=== PATIENT | male | born 1960 | race Caucasian/White ===

== ENCOUNTER → 2024-08-01 | Outpatient (CLI) | payer BC ==
--- NOTE | 2024-08-01 11:50 | HMCIMG ---
COLON-GASTROGRAFIN REASON: DIVERTICULITIS OF LARGE INTESTINE W/O PERFORATION OR ABSCESS W/O BLEEDING COMPARISON: None TECHNIQUE: Gastrografin enema was performed. The fluoroscopic observation was performed, fluoroscopy time 1.6 minutes. FINDINGS: There is filling to the level of the mid sigmoid colon. Persistent attempts did not yield filling beyond this point. This may represent a rectal pouch. If there is no rectal pouch then this could represent an obstructing lesion in the mid sigmoid colon. IMPRESSION: 1. Gastrografin does not extend beyond the mid sigmoid colon, either bland and rectal pouch or a focal sigmoid obstruction.
== END | disposition home or self-care (01) ==
LOC: RAH 08:32
PROVIDERS: ATTEND Surgery
DX: K57.32 Diverticulitis of large intestine without perforation or abscess without bleeding (principal)
CPT/HCPCS: 74270; Q9958

== ENCOUNTER → 2024-08-28 | Outpatient (CLI) | payer BC ==
[~2024-08-28] MED LIST: IOHEXOL-350 75 ML VIAL IV ONE
--- NOTE | 2024-08-28 11:35 | HMCIMG ---
CT ABDOMEN WITHOUT AND WITH CONTRAST INDICATION: Cutaneous abscess of abdominal wall TECHNIQUE: Routine transaxial images at 5 mm slice thickness were obtained prior to the administration of contrast material through the abdomen only, and after the intravenous infusion of 100 mL of Omnipaque 350 through the abdomen only without adverse effects. Delayed images of the abdomen were also obtained. Coronal and sagittal reformatted imaging acquired for interpretation. Oral contrast was administered. CT was performed with one or more of the following dose reduction techniques: Automated exposure control, adjustment of the mA and/or kV according to patient size, or use of iterative reconstruction technique. COMPARISON: None FINDINGS: Heart size is normal. 1.2 cm nodule at the posterior right lung base. The liver is normal in size and smooth in contour without biliary duct dilation. A few tiny simple hepatic cysts. The spleen is normal in size without lesions. The gallbladder appears normal. The pancreas appears normal without pancreatic duct dilation. The adrenal glands appear normal. 2.8 cm proteinaceous or hemorrhagic cyst along the lateral cortex of the left kidney at its midportion. Smaller 1.9 cm simple cyst along the anterior cortex of the right kidney at its upper portion. Cortical nephrograms are symmetric and normal in appearance bilaterally. No significant abdominal, retrocrural or retroperitoneal adenopathy noted.No evidence for intra-abdominal free air or organized fluid collection. No aortic aneurysmal dilation or dissection identified. Visible osseous structures are intact. IMPRESSION: 1. 1.2 cm posterior right lung base nodule. Please see below for recommendations. 2. Left abdominal colostomy appears normal, without any evidence for abdominal wall abscess. 3. Additional minor findings and pertinent negatives as reported. 2017 Guidelines for Management of Incidental Pulmonary Nodules Detected on CT images: Fleischner Society (Radiology 2017). Single Nodule: LOW RISK PATIENT: <6 mm: No follow-up required. 6-8 mm: Follow-up CT at 6-12 months, then CT at 18-24 months. >8 mm: Consider follow-up CT at 3 months, PET/CT , or tissue sampling. HIGH RISK PATIENT: <6 mm: Optional CT at 12 months. (Certain patients at high risk with suspicious nodule morphology, upper lobe location, or both may warrant 12 month follow-up). 6-8 mm: Follow-up CT at 6-12 months, then CT at 18-24 months. >8 mm: Consider follow-up CT at 3 months, PET/CT , or tissue sampling.
== END | disposition home or self-care (01) ==
LOC: RAH 08:14
PROVIDERS: ATTEND Internal Medicine Nephrology
DX: N28.1 Cyst of kidney, acquired (principal); L02.211 Cutaneous abscess of abdominal wall; K76.89 Other specified diseases of liver; Z93.3 Colostomy status
CPT/HCPCS: 74170; Q9967

== ENCOUNTER → 2024-10-11 | Outpatient (CLI) | payer BC ==
--- NOTE | 2024-10-11 18:30 | HMCIMG ---
ABDOMEN SINGLE VIEW INDICATION: Pain COMPARISON: None FINDINGS: Supine view only No abnormal bowel dilation noted. Moderate proximal and distal colonic stool burden. No abnormal calcifications identified. No gross free air detected. IMPRESSION: Moderate proximal and distal colonic stool burden without evidence for bowel obstruction.
== END | disposition home or self-care (01) ==
LOC: RAH 16:49
PROVIDERS: ATTEND Internal Medicine Gastroenterology
DX: K59.00 Constipation, unspecified (principal); R10.9 Unspecified abdominal pain
CPT/HCPCS: 74018

== ENCOUNTER → 2025-03-13 | Outpatient (CLI) | payer BC ==
--- NOTE | 2025-03-13 15:44 | HMCIMG ---
INDICATION: Cutaneous abscess of abdominal wall. COMPARISON: None. TECHNIQUE: After obtaining the patient's consent, CT images of the abdomen were obtained without intravenous contrast material. Multiplanar image reconstruction was performed. In addition, Multiplanar MIP reconstructions were created and interpreted to optimize visualization of vascular anatomy. Numerous low-radiation dose strategies were employed including AEC (Automatic Exposure Control) and individualized BMI-based low dose scan protocols. The exam was performed on a CT scanner that is compliant with the NEMA XR-29 Smart Dose Standard. DICOM Radiation Dose Structured Reporting capability and Dose Check Standard are also features of this scanner. RADIATION DOSE ESTIMATE: CTDIvol (mGy): 42.40 \ DLP (mGy-cm): 186.70 FINDINGS: The visualized portions of the lung bases are clear. LIVER: Normal. No enlargement or significant focal lesion. Portal vein is patent. There is a cyst seen in the right lobe of the liver in the periphery measuring 2 cm. BILIARY: Normal. No visible dilatation or calcification. PANCREAS: Normal. No lesion, fluid collection, ductal dilatation, or acute inflammation. SPLEEN: Normal. No enlargement or focal lesion. KIDNEYS: The left kidney in the upper to midpole there is a hyperdense lesion measuring 4.1 x 3.2 cm.. The right kidney and upper pole there is an exophytic cortical cyst measuring approximately 2.8 cm. ADRENALS: Normal. No mass or enlargement. RETROPERITONEUM: Normal. No mass or adenopathy. BOWEL/MESENTERY: Normal. No visible mass, obstruction, or bowel wall thickening. ABDOMINAL WALL: Normal. No mass or hernia. BONES: Normal for age. LUNG BASES: Normal. No visible pulmonary of pleural disease. OTHER: There is left umbilical and periumbilical hernia with loops of bowel which are not incarcerated.. IMPRESSION Left kidney upper to midpole there is a hyperdense lesion suggesting of a mass. I would recommend CT with contrast and this is amenable for CT-guided biopsy for histological sampling.. Left umbilical and left periumbilical region there is wall defect with hernia with loops of bowel which are not incarcerated.
== END | disposition home or self-care (01) ==
LOC: RAH 13:23
PROVIDERS: ATTEND Internal Medicine Nephrology
DX: K42.9 Umbilical hernia without obstruction or gangrene (principal); N28.1 Cyst of kidney, acquired; K76.89 Other specified diseases of liver; N28.89 Other specified disorders of kidney and ureter; L02.211 Cutaneous abscess of abdominal wall
CPT/HCPCS: 74150

== ENCOUNTER 2025-04-05 14:12 | Emergency (ER) | payer BC ==
[~2025-04-05] VITALS: Ht 180.3 cm; Wt 120.7 kg
--- NOTE | 2025-04-05 14:30 | ERN ---
ED Note History of Present Illness Stated Complaint: WEAKNESS Chief Complaint: Fatigue Time Seen by MD: 14:14 Dictation: A 64-YEAR-OLD MALE COMING IN FROM HOME STATES HE IS JUST NOT BEEN FEELING GOOD IN HIS HAVING INCREASED FORGET NO FULLNESS FOR THE LAST TWO DAYS. STATES HE IS HAVING SHORT-TERM RECALL ISSUES AND FEELS NUMBNESS AND TINGLING TO HIS BILATERAL UPPER EXTREMITIES. HE DENIES FEVER CHILLS NAUSEA VOMITING. NO ABDOMINAL PAIN. STATES HE SAW HIS PERSONAL INJURY PARALEGAL'S YESTERDAY WHO TOLD HIM HE HAD AN ELEVATED CALCIUM LEVEL AND THAT HE WOULD PUT HIM IN THE CAT SCANNER IN THE NEXT SEVERAL DAYS TO RULE OUT CARDIAC DISEASE. STATES HE WAS SEPTIC IN [place] IN MAY AND WAS IN THE [id number] DAYS HAD A COLOSTOMY WITH A BOWEL OBSTRUCTION. HE STATES THEY RECENTLY REVERSE THAT COLOSTOMY. SCAR TO LEFT LOWER QUADRANT. NO ABDOMINAL PAIN Allergies: Coded Allergies: hydrocodone (Unverified Allergy, Unknown, 04/05/25) Past Medical History Past Medical History: Diabetes-Type II Additional Past Medical Hx: HERNIAS, MASS IN LUNG Surgical History: Tonsillectomy Surgical History Other: BRAIN SURGERY, VERNON HIP REPLACEMENT, BACK SURGERY, HERNIA REPAIRS X 5, ULISES RN Note Reviewed/Agreed w/PFSH: Yes Review of System Dictation CONSTITUTIONAL: NEGATIVE EXCEPT FOR HPI BODY WEAKNESS HEAD/FACE: NEGATIVE EXCEPT FOR HPI EENT: NEGATIVE EXCEPT FOR HPI RESPIRATORY: NEGATIVE EXCEPT FOR HPI PALPITATIONS GASTROINTESTINAL/ABDOMINAL: NEGATIVE EXCEPT FOR HPI GENITOURINARY: NEGATIVE EXCEPT FOR HPI MUSCULOSKELETAL: NEGATIVE EXCEPT FOR HPI INTEGUMENTARY: NEGATIVE EXCEPT FOR HPI NEUROLOGICAL/PSYCH: NEGATIVE EXCEPT FOR HPI HEMATOLOGIC/LYMPHATIC: NEGATIVE EXCEPT FOR HPI ALL SYSTEMS NEGATIVE, EXCEPT NOTED ABOVE. 13 POINT REVIEW OF SYSTEMS ASSESSED AND ALL NEGATIVE EXCEPT FOR ABOVE. Initial Vital Sign VS Vital Signs Date Time Temp Pulse Resp B/P (MAP) Pulse Ox O2 Delivery O2 Flow Rate FiO2 04/05/25 14:13 98.2 85 18 116/66 97 Room Air 04/05/25 14:57 0 21 Physical Exam Dictation VITAL SIGNS REVIEWED GENERAL APPEARANCE: ALERT, ORIENTED X 3, NO ACUTE DISTRESS, WELL DEVELOPED, NOURISHED. HEAD AND FACE: NON-TRAUMATIC. EYES: PERRL, PINK CONJUNCTIVAS, EYELID NO TRAUMA, ANTERIOR CHAMBER WITH ARCUS SENILIS. EARS: PINNAS INTACT AND NO SIGNS OF TRAUMA OR ERYTHEMA EAR CANALS CLEAR AND NO DISCHARGE TM NO ERYTHEMA NOSE: NO DISCHARGE, NO BLEEDING. OROPHARYNX: MOUTH NORMAL, TONGUE PINK, PHARYNX CLEAR,NO ERYTHEMA, TONSILS NO EXUDATES, NO ABSCESSES NOTED, MUCOUS MEMBRANE MOIST NECK: SUPPLE, NON-TENDER, NO THYROMEGALY, NO MASSES, NO JVD, NO BRUITS BREAST:DEFERRED CHEST:NO TENDERNESS, NO CREPITUS, NO PARADOXICAL MOVEMENT, NO RETRACTIONS LUNGS:CLEAR, WELL-VENTILATED, SYMMETRIC, NO RALES, NO WHEEZING, NO RHONCHI, NO STRIDOR, GOOD BREATH SOUNDS BILATERALLY HEART: REGULAR RATE, REGULAR RHYTHM, NO MURMUR, NO GALLOPS VASCULAR: NO PERIPHERAL EDEMA, ABDOMEN: SOFT, POSITIVE BOWEL SOUNDS, NONDISTENDED, NO GUARDING, NONTENDER, NO REBOUND, NO MASSES NO HEPATOMEGALY, NO SPLENOMEGALY, NO SHARIF'S SIGN, NO HERNIAS. NO FOCAL PAIN RECTAL: DEFERRED GENITAL: DEFERRED NEUROLOGICAL: NORMAL SPEECH, MOTOR FUNCTION INTACT, SENSORY FUNCTION INTACT NIH IS 0 MUSCULOSKELETAL: NECK NONTENDER, FULL RANGE OF MOTION, BACK NONTENDER, FULL RANGE OF MOTION, EXTREMITIES: NONTENDER, FULL RANGE OF MOTION SKIN: COLOR PINK, DRY, NO TURGOR, NO RASH, NO LACERATIONS, NO ABRASIONS, NO CONTUSIONS. LYMPHATIC: DEFERRED Results (Laboratory/Radiology) Laboratory/Radiology Laboratory Tests Test 04/05/25 14:21 04/05/25 14:37 04/05/25 14:53 Urine Color LIGHT-YELLOW (YELLOW) Urine Appearance CLEAR (CLEAR) Urine pH 5.5 (5.0-8.0) Urine Specific [place] 1.030 (1.001-1.031) Urine Protein NEGATIVE mg/dL (NEGATIVE) Urine Glucose (UA) >=1000 mg/dL (NEGATIVE) H Urine Ketones NEGATIVE mg/dL (NEGATIVE) Urine Occult Blood +- (TRACE) (NEGATIVE) H Urine Nitrate NEGATIVE (NEGATIVE) Urine Bilirubin NEGATIVE mg/dL (NEGATIVE) Urine Urobilinogen 0.2 mg/dL (0.2-1.0) Urine Leukocyte Esterase NEGATIVE Hal/uL Urine RBC 0-1 /HPF (0-1) Urine WBC 0-1 /HPF (0-1) Urine Squamous Epithelial Cells RARE /HPF (0-2) Urine Bacteria None /HPF (None Seen) SARS-CoV-2 Antigen (Rapid) PRESUMPTIVE NEGATIVE White Blood Count 8.8 K/uL (4.8-10.8) Red Blood Count 5.40 MIL/uL (4.50-6.20) Hemoglobin 15.3 g/dL (14.0-18.0) Hematocrit 45.0 % (42-54) Mean Corpuscular Volume 83.3 fL (79-99) Mean Corpuscular Hemoglobin 28.3 pg (27.0-33.0) Mean Corpuscular Hemoglobin Concent 34.0 g/dL (32.0-36.0) Red Cell Distribution Width 14.5 % (11.0-15.5) Platelet Count 205 K/uL (130-400) Mean Platelet Volume 10.3 fL (7.5-10.5) Immature Granulocyte % (Auto) 0.3 % (0-1) Neutrophils (%) (Auto) 53.8 % (40.0-77.0) Lymphocytes (%) (Auto) 33.1 % (21.0-51.0) Monocytes (%) (Auto) 11.1 % (3.0-13.0) Eosinophils (%) (Auto) 1.4 % (0.0-8.0) Basophils (%) (Auto) 0.3 % (0.0-5.0) Neutrophils # (Auto) 4.7 K/uL (1.8-7.7) Lymphocytes # (Auto) 2.9 K/uL (1.0-4.8) Monocytes # (Auto) 1.0 K/uL (0.1-1.0) Eosinophils # (Auto) 0.12 K/uL (0.00-0.70) Basophils # (Auto) 0.03 K/uL (0.00-0.20) Absolute Immature Granulocyte (auto 0.03 K/uL (0-1) Nucleated Red Blood Cells 0.0 % (0.0-0.19) Sodium Level 141 mmol/L (136-145) Potassium Level 3.8 mmol/L (3.5-5.1) Chloride Level 104 mmol/L (101-111) Carbon Dioxide Level 28 mmol/L (21-32) Blood Urea Nitrogen 15 mg/dL (7-18) Creatinine 1.3 mg/dL (0.5-1.3) Glomerular Filtration Rate Calc 62 mL/min (>90) Random Glucose 113 mg/dL (70-105) H Lactic Acid Level 1.9 mmol/L (0.8-2.5) Total Calcium 8.7 mg/dL (8.5-10.1) Magnesium Level 2.00 mg/dL (1.80-2.40) Troponin I High Sensitivity 4 ng/L (4-75) COMPARISON: None provided. FINDINGS: BRAIN: No acute bleed or infarct. 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 VENTRICLES: No hydrocephalus. ORBITS: The orbits are unremarkable. SINUSES AND MASTOIDS: The paranasal sinuses and mastoid air cells are clear. BONES: No fracture. SOFT TISSUES: Unremarkable. IMPRESSION: 1. No acute bleed or infarct. 2. 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 /[place] RTNESS A BREATH ORDERING PHYSICIAN: SCOTT CALVERT FLAKE CUTTER OPERATOR PROCEDURE: CXR1VW - CHEST 1VW EXAM: CHEST RADIOGRAPH, SINGLE VIEW Technique: A single frontal projection of the chest was obtained. Single-view technique limits evaluation for small pneumothoraces, small pleural effusions, and subtle parenchymal abnormalities. Clinical Information: Shortness of breath. Comparison: None. Findings: The lungs are clear without focal air-space consolidation or interstitial edema on this single projection. No pleural effusion or pneumothorax is identified. The cardiomediastinal silhouette is within normal size limits for a single-view examination. No acute osseous abnormality is seen. Impression: * No acute cardiopulmonary process. /[place] Labs Reviewed?: Yes EKG: (+) NSR EKG Comment: 1413/EKG NORMAL SINUS RHYTHM/HEART RATE 85/AXIS NORMAL/NO ECTOPY ED Course ED Course Orders Procedure Category Date Status Time Blood Cult ADENIKE 04/05/25 Logged 14:26 Lactic Acid LAB 04/05/25 Complete 14:26 Ct Head/Brain W/O CT 04/05/25 Resulted Contrast 14:26 Covid19 (Sars Antigen LAB 04/05/25 Complete Rapid) 14:26 Cbc With Differential LAB 04/05/25 Complete 14:26 Chest 1vw RAD 04/05/25 Resulted 14:26 12 Lead Ekg Tracing- EKG 04/05/25 Logged Technical 14:26 0.9%Nacl 1000ml (Ns PHA 04/05/25 Complete 1000ml) 14:30 Magnesium LAB 04/05/25 Complete 14:26 Troponin I High LAB 04/05/25 Complete Sensitivity 14:26 Urinalysis Profile LAB 04/05/25 Complete 14:26 Basic Metabolic Panel LAB 04/05/25 Complete 14:26 Current Medications Medications (Trade) Dose Ordered Sig/Luis Enrique Route PRN Reason Start Time Stop Time Status Last Admin Dose Admin Sodium Chloride 1,000 ml @ 0 mls/hr ONCE ONCE IV 04/05/25 14:30 04/05/25 14:31 DC 04/05/25 15:14 Vital Signs Date Time Temp Pulse Resp B/P (MAP) Pulse Ox O2 Delivery O2 Flow Rate FiO2 04/05/25 14:57 98.2 80 16 91/57 98 Room Air* 0 21 04/05/25 14:13 98.2 85 18 116/66 97 Room Air 1635/PATIENT IS HEMODYNAMICALLY STABLE NO ACUTE DISTRESS. DISCHARGED HOME TO FOLLOW UP WITH HIS PRIMARY CARE DOCTOR HE HAS DOCUMENTATION SHOWING HE HAS A LEFT RENAL MASS AND HE SAID HE IS AWARE OF HIS STAGE 2 CHRONIC KIDNEY DISEASE. HE WILL SEE DR. STANLEY MONDAY HEART Score Response (Comments) Value History: Low suspicion (0) 0 Age: 45-65yrs (+1) 1 Risk Factors: 1-2 risk factors (+1) 1 Initial Troponin: Normal limit (0) 0 Total 2 Medical Decision Making MDM MDM: DIFFERENTIAL DIAGNOSIS: CVA/ACS/AMI/ELECTROLYTE IMBALANCE/DEHYDRATION/UTI/SARS COVID-PNEUMONIA/BRONCHITIS RATIONALE: TESTS CONSIDERED AND ORDERED SECONDARY TO SHARED DECISION MAKING INCLUDE: LABS/RADIOLOGY/EKG PREVIOUS OUTSIDE RECORDS REVIEWED: OLD ER VISITS. RISK OF COMPLICATION AND/OR MORBIDITY OR MORTALITY OF PATIENT MANAGEMENT: NONE MEDICATIONS-PER MEDICATION RECONCILIATION NEED FOR HOSPITALIZATION: PATIENT DOES NOT MEET CRITERIA FOR HOSPITALIZATION. NONE NEED FOR EMERGENCY MAJOR/MINOR SURGERY: NO THERE ARE NO SOCIAL CONCERNS WITH THIS PATIENT. PRESCRIPTION DRUG MANAGEMENT PRESCRIPTIONS WILL INCLUDE SYMPTOMATIC CARE PATIENT'S PRIOR EXTERNAL MEDICAL RECORDS FROM OTHER ER VISITS WERE REVIEWED BY ME INDICATED. PRIOR TESTING AND RESULTS FROM PREVIOUS VISITS WERE REVIEWED. PRIOR TESTS WERE TAKEN INTO ACCOUNT WITH MEDICAL DECISION MAKING AND RESOURCE UTILIZATION, INDEPENDENT HISTORIAN/HISTORIANS WERE USED TO OBTAIN COMPLETE MEDICAL HISTORY. I INDEPENDENTLY INTERPRETED THE TEST THAT WERE PERFORMED, RESULTS WERE REVIEWED BY ME AND CONSIDERED FINDINGS ON RADIOLOGY IF ORDERED. MEDICAL MANAGEMENT AND EXAMINATION INTERPRETATION DISCUSSIONS WERE HAD BY ME WITH OTHER QUALIFIED HEALTHCARE PROFESSIONALS INDICATED FOR THE PATIENT'S CARE. DX & DISP Disposition: Discharge Departure Impression: Primary Impression: Fatigue Additional Impressions: Stage 3 chronic kidney disease, Left renal mass Condition: Stable Additional Instructions: FOLLOW-UP WITH PRIMARY CARE PROVIDER IN 1 TO 2 DAYS. TAKE MEDICATIONS DIRECTED HERE IN THE EMERGENCY ROOM. OKAY TO CONTINUE HOME MEDICATIONS UNLESS OTHERWISE DISCUSSED DURING YOUR VISIT IN THE EMERGENCY ROOM TODAY. RETURN TO YOUR NEAREST EMERGENCY ROOM IF SYMPTOMS WORSEN OR IF THERE IS NO IMPROVEMENT. CALL 911 IF YOU NEED IMMEDIATE ASSISTANCE. TAKE TYLENOL OR MOTRIN [id number] NEEDED AND IF NO CONTRAINDICATIONS ARE PRESENT. INCREASE ORAL HYDRATION. A WOUND CULTURE OR URINE CULTURE WAS ORDERED HERE IN THE EMERGENCY ROOM DEPARTMENT PLEASE FOLLOW-UP WITH PRIMARY CARE PROVIDER AND ADVISE THEM TO GET REPEAT PORTS FROM OUR FACILITY. IF YOU HAD ANY NANO WRAP/SPLINTS THAT WERE APPLIED HERE, PLEASE DO NOT REMOVE THEM UNTIL YOU SEE YOUR PRIMARY CARE OR SPECIALTY. INCREASE YOUR FLUID INTAKE. SEE YOUR PRIMARY CARE DOCTOR FOR FOLLOW UP IN THE NEXT 1-2 DAYS FOR YOUR FATIGUE AND LEFT RENAL MASS Referrals: WILD LACY MD (PCP) Time of Disposition: 16:36 I have reviewed the case, and I agree with, Diagnosis and Plan SCOTT CALVERT Apr 05, 2025 14:30
[2025-04-05 14:50] LABS: ADD UA MICROSCOPIC YES; APPEARANCE,URINE CLEAR (CLEAR); GLUCOSE, URINE (UA) >=1000 mg/dL (NEGATIVE); LEUKOCYTE ESTERASE ,URINE NEGATIVE Leu/uL (NEGATIVE); NITRATE,URINE NEGATIVE (NEGATIVE); OCCULT BLOOD,URINE +- (TRACE) (NEGATIVE)
[2025-04-05 14:51] LABS: SQUAMOUS EPITHELIAL CELL,UR RARE /HPF (0-2)
--- NOTE | 2025-04-05 15:08 | HMCIMG ---
EXAM: CT Head Without IV contrast. CLINICAL HISTORY: NUMBNESS AND TINGLING BILATERAL UPPER EXTREMITIES AND FORGETFULNESS TWO DAY TECHNIQUE: Axial computed tomography images of the head/brain without intravenous contrast. COMPARISON: None provided. FINDINGS: BRAIN: No acute bleed or infarct. 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 VENTRICLES: No hydrocephalus. ORBITS: The orbits are unremarkable. SINUSES AND MASTOIDS: The paranasal sinuses and mastoid air cells are clear. BONES: No fracture. SOFT TISSUES: Unremarkable. IMPRESSION: 1. No acute bleed or infarct. 2. 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 /[place]
[2025-04-05 15:09] LABS: IMMATURE GRANULOCYTE ABSOLUTE 0.03 K/uL (0-1); NUCLEATED RED BLOOD CELLS 0.0 % (0.0-0.19); PLATELET COUNT (AUTO) 205 K/uL (130-400); RED BLOOD CELL COUNT(AUTO) 5.40 MIL/uL (4.50-6.20); RED CELL DISTRIBUTION WIDTH 14.5 % (11.0-15.5); WHITE BLOOD COUNT (AUTO) 8.8 K/uL (4.8-10.8)
[2025-04-05] MEDS: 0.9%NACL 1000ML 1,000 ML IV ONE (15:14)
[2025-04-05 15:26] LABS: CREATININE 1.3 mg/dL (0.5-1.3); GLOMERULAR FILTR. RATE CALC 62.0 mL/min (>90); GLUCOSE,RANDOM 113.0 mg/dL (70-105); SODIUM SERUM 141.0 mmol/L (136-145); UREA NITROGEN, BLOOD 15.0 mg/dL (7-18)
--- NOTE | 2025-04-05 15:39 | HMCIMG ---
EXAM: CHEST RADIOGRAPH, SINGLE VIEW Technique: A single frontal projection of the chest was obtained. Single-view technique limits evaluation for small pneumothoraces, small pleural effusions, and subtle parenchymal abnormalities. Clinical Information: Shortness of breath. Comparison: None. Findings: The lungs are clear without focal air-space consolidation or interstitial edema on this single projection. No pleural effusion or pneumothorax is identified. The cardiomediastinal silhouette is within normal size limits for a single-view examination. No acute osseous abnormality is seen. Impression: * No acute cardiopulmonary process. /[place]
[2025-04-05 16:58] VITALS: BP 97/64; PULSE 71; RESP 16; TEMP 98.3; O2SAT 98
--- NOTE | 2025-04-06 07:35 | EKG ---
[facility] Test Date: 2025-04-05 Test Time: 14:13:37 Pat Name: MARCO GRIGGS Department: ED Room: Gender: M Supervisor [facility]: [facility] : 1960 Requested By: SCOTT CALVERT Order Number: [id number] Reading MD: Ivette Herring Measurements Intervals [place] Rate: 85 P: 2 PA: 167 QRS: -22 QRSD: 103 T: 26 QT: 368 QTc: 437 Interpretive Statements Sinus rhythm No previous ECG available for comparison Electronically Signed On 04-06-2025 16:36:07 CDT by Ivette Herring Please click the below link to view image of tracing.
== END 2025-04-05 17:16 | disposition home or self-care (01) ==
LOC: EDH 14:12
DX: R53.83 Other fatigue (principal); E11.22 Type 2 diabetes mellitus with diabetic chronic kidney disease; N18.30 Chronic kidney disease, stage 3 unspecified; N28.89 Other specified disorders of kidney and ureter; Z88.5 Allergy status to narcotic agent; Z90.89 Acquired absence of other organs; Z96.643 Presence of artificial hip joint, bilateral; Z98.890 Other specified postprocedural states; Z20.822 Contact with and (suspected) exposure to COVID-19
CPT/HCPCS: 99284; 96360; 70450; 71045; 87426; 83735; 84484; 80048; 85025; 87040 ×2; 83605; 81001; 36415; 93005; J7030

== ENCOUNTER → 2025-04-18 | Outpatient (CLI) | payer BC ==
--- NOTE | 2025-04-19 18:36 | HMCIMG ---
EXAM: CT Abdomen and Pelvis with Intravenous Contrast CLINICAL HISTORY: Other specified disorders of kidney and ureter. TECHNIQUE: Axial computed tomography images of the abdomen and pelvis with intravenous contrast. Dose reduction technique was used including one or more of the following: automated exposure control, adjustment of mA and kV according to patient size, and/or iterative reconstruction. Total exam DLP is 2738 mm x cm. CONTRAST: With intravenous contrast (75 mL of intravenous iodinated contrast has been administered). COMPARISON: Prior non-contrast CT scan of the abdomen dated 03/13/2025. FINDINGS: LUNG BASES: Bibasilar atelectasis. No pleural effusion. LIVER: Redemonstrated are multiple non-enhancing hypodensities in the both hepatic lobes, the largest in the segment VIII measuring 2.3 x 2.1 cm, suggestive of simple cysts. Redemonstrated is hepatomegaly measuring 22 cm with fatty infiltration of liver. GALLBLADDER AND BILE DUCTS: Unremarkable. No calcified stone. No ductal dilation. PANCREAS: Unremarkable. SPLEEN: Unremarkable. ADRENAL GLANDS: Unremarkable. KIDNEYS, URETERS, AND BLADDER: There are non-enhancing Bosniak class I bilateral renal cysts, the largest in the left kidney measuring 4.3 x 3.2 cm, stable since the prior examination. There is no renal, ureteric calculi, or hydroureteronephrosis on either side. Adequate contrast excretion is seen through the both kidneys without hydroureteronephrosis. Per consensus, no follow-up is needed for simple Bosniak type 1 renal cysts, unless the patient has a malignancy history or risk factors. STOMACH AND BOWEL: Again seen is stable appearance of a small sized hiatal hernia. A moderate amount of fecal material is present in the colon. There is evidence of prior surgery involving the sigmoid colon with resection and end to end anastomosis without anastomotic site obstruction or leakage. No other obstruction. No other wall thickening. No CT evidence of colitis or acute diverticulitis. APPENDIX: Normal appendix. PERITONEUM: No free fluid. No free air. LYMPH NODES: No lymphadenopathy. REPRODUCTIVE: Bilateral hip joints prosthesis are visualized causing streak artifacts with difficulty in evaluation of the pelvic organs. There is moderate prostatomegaly. VASCULATURE: No aortic aneurysm. ABDOMINAL WALL AND SOFT TISSUES: There is a trans umbilical midline anterior abdominal wall scar redemonstrated . Supraumbilical midline ventral abdominal wall incisional hernia is present with the defect measuring 7.6 cm in width and is stable since the prior examination with herniation of omental fat and contrast opacified, non-obstructed bowel loops into it. No evidence of incarceration. The infraumbilical part of this midline abdominal wall scar shows well healed appearance. There is additional ventral abdominal wall hernia in the left paramedian region at the level of the umbilicus with the defect measuring 3.5 cm with herniation of omental fat and contrast opacified, non-obstructed bowel loops through it, stable since the prior examination without evidence of obstruction or incarceration. The previously noted 1.3 x 1 cm sized left paraumbilical region subcutaneous collection overlying the rectus sheath defect is re demonstrated, however, reduced in size with current measurements 1 x 0.7 x 0.6 cm with surrounding subcutaneous fat stranding which is similar to the prior examination. BONES: Bilateral hip joints prosthesis are visualized causing streak artifacts with difficulty in evaluation of the pelvic organs. There are degenerative changes in the lumbar spine. No acute fracture. IMPRESSION: 1. Minimal reduction in the size of the minimal cellulitis overlying the left paraumbilical ventral abdominal wall hernia defect. 2. No bowel obstruction or inflammation. 3. Stable midline and left paramedian ventral abdominal wall hernias. No evidence of obstruction or incarceration. 4. No urinary calculi. No hydronephrosis. /[place]
== END | disposition home or self-care (01) ==
LOC: RAH 08:01
PROVIDERS: ATTEND Internal Medicine Nephrology
DX: K76.0 Fatty (change of) liver, not elsewhere classified (principal); K43.9 Ventral hernia without obstruction or gangrene; N40.1 Benign prostatic hyperplasia with lower urinary tract symptoms; N28.1 Cyst of kidney, acquired; N28.89 Other specified disorders of kidney and ureter; M47.816 Spondylosis without myelopathy or radiculopathy, lumbar region; Z96.643 Presence of artificial hip joint, bilateral
CPT/HCPCS: 74177; Q9967